=== PATIENT | male | born 1950 | race Caucasian/White ===

== ENCOUNTER 2022-07-31 09:36 | Day surgery (SDC) | payer MEDICARE, OTHER ==
[~2022-07-31] VITALS: Ht 180.3 cm; Wt 95.8 kg
[~2022-07-31 09:36] MED LIST: ALLO10TA PO; ASPI81TA26 PO; BSS IRRIG/VANCO(10MG)/TOBRA(5MG)/EPINEPH(1:1000-0.5CC)500ML BAG-ORONLY IR ONE; CEFUROXIME 1MG/0.1ML INTRACAMERAL INJ As Ordered ONE; CYCLOPENTOLATE 1% OPHTH SOLN 2 ML BTL OD SCH; FLOM0.4C39 PO; GLIP5TAB20 PO; LIDOCAINE 1% SDV 5ML VIAL As Ordered ONE; LIDOCAINE 3.5 % 1ML OPHTH TOPICAL GEL OU ONE; LISI10TA22 PO; LORA-243 PO; METF500T13 PO; OFLOXACIN 0.3 % (OCUFLOX) OPTH SOL 5ML OD ONE; PHENYLEPHRINE 2.5% OPHTH SOL 2ML OD SCH; PHENYLEPHRINE HCL 10 % OPHTH. SOL 5ML OD PRN; PRAV20TA2 PO; RA M10TA PO; TRAD5TAB PO; TRAZ-257 PO; TROPICAMIDE 1% OPHTH SOLN 2ML OD SCH; VITA100093 PO
[2022-07-31 11:25] VITALS: BP 129/62
[2022-07-31] MEDS ORDERED: fentaNYL 100 MCG/2 ML INJECTION As Ordered ONE (11:37)
[2022-07-31] MEDS ORDERED: MIDAZOLAM INJ 2MG/2ML VIAL (J2250 PER 1MG) As Ordered ONE (11:37)
== END 2022-07-31 11:43 | disposition home or self-care (01) ==
LOC: M SDC 09:36
PROVIDERS: ATTEND Ophthalmology
DX: H25.11 Age-related nuclear cataract, right eye (principal); E11.9 Type 2 diabetes mellitus without complications; I10 Essential (primary) hypertension; E78.2 Mixed hyperlipidemia; Z79.899 Other long term (current) drug therapy; Z79.82 Long term (current) use of aspirin; Z79.84 Long term (current) use of oral hypoglycemic drugs
CPT/HCPCS: 66984; 87635; J0697; J2250; J3010; V2632

== ENCOUNTER → 2022-09-28 | Outpatient (CLI) | payer MEDICARE, OTHER ==
[~2022-09-28] MED LIST changes: -BSS IRRIG/VANCO(10MG)/TOBRA(5MG)/EPINEPH(1:1000-0.5CC)500ML BAG-ORONLY IR ONE; -CEFUROXIME 1MG/0.1ML INTRACAMERAL INJ As Ordered ONE; -CYCLOPENTOLATE 1% OPHTH SOLN 2 ML BTL OD SCH; -LIDOCAINE 1% SDV 5ML VIAL As Ordered ONE; -LIDOCAINE 3.5 % 1ML OPHTH TOPICAL GEL OU ONE; -OFLOXACIN 0.3 % (OCUFLOX) OPTH SOL 5ML OD ONE; -PHENYLEPHRINE 2.5% OPHTH SOL 2ML OD SCH; -PHENYLEPHRINE HCL 10 % OPHTH. SOL 5ML OD PRN; -TROPICAMIDE 1% OPHTH SOLN 2ML OD SCH
== END ==
LOC: M LABSMTC 11:34
PROVIDERS: ATTEND Anesthesiology
DX: Z01.812 Encounter for preprocedural laboratory examination (principal); Z11.52 Encounter for screening for COVID-19

== ENCOUNTER 2022-10-02 10:16 | Day surgery (SDC) | payer MEDICARE, OTHER ==
[~2022-10-02] VITALS: Ht 180.3 cm; Wt 95.7 kg
[~2022-10-02 10:16] MED LIST changes: +BSS IRRIG/VANCO(10MG)/TOBRA(5MG)/EPINEPH(1:1000-0.5CC)500ML BAG-ORONLY IR ONE; +CEFUROXIME 1MG/0.1ML INTRACAMERAL INJ As Ordered ONE; +CYCLOPENTOLATE 1% OPHTH SOLN 2ML BTL OS SCH; +LIDOCAINE 1% 1ML PF SYRINGE (OR EYE CASES) As Ordered ONE; +LIDOCAINE 3.5 % 1ML OPHTH TOPICAL GEL OU ONE; +OFLOXACIN 0.3 % (OCUFLOX) OPTH SOL 5ML OS ONE; +PHENYLEPHRINE 10% OPHTH SOL 5ML OS PRN; +PHENYLEPHRINE 2.5% OPHTH SOL 2ML OS SCH; +TROPICAMIDE 1% OPHTH SOLN 15ML OS SCH
[2022-10-02] MEDS ORDERED: MIDAZOLAM INJ 2MG/2ML VIAL (J2250 PER 1MG) As Ordered ONE (11:24)
[2022-10-02 11:49] VITALS: BP 133/72
== END 2022-10-02 12:09 | disposition home or self-care (01) ==
LOC: M SDC 10:16
PROVIDERS: ATTEND Ophthalmology
DX: H25.12 Age-related nuclear cataract, left eye (principal); H57.03 Miosis; I10 Essential (primary) hypertension; E78.00 Pure hypercholesterolemia, unspecified; E11.9 Type 2 diabetes mellitus without complications; M10.9 Gout, unspecified; K21.9 Gastro-esophageal reflux disease without esophagitis; M19.90 Unspecified osteoarthritis, unspecified site; G47.30 Sleep apnea, unspecified; Z87.891 Personal history of nicotine dependence; Z79.899 Other long term (current) drug therapy; Z79.82 Long term (current) use of aspirin; Z79.84 Long term (current) use of oral hypoglycemic drugs
CPT/HCPCS: 66982; J0697; J2250; V2632